=== PATIENT | male | born 1975 | race Two or more races ===

== ENCOUNTER 2018-05-06 23:01 | Emergency (ER) | payer SELFPAY ==
--- NOTE | 2018-05-06 23:06 | ER Document Report ---
ED Medical Screen (RME) - General Stated Complaint: BLOOD IN STOOL Time Seen by Provider: 05/06/18 23:03 Mode of Arrival: Ambulatory Information source: Patient Notes: PT NOTED BLOOD IN STOOL TWICE TODAY. NOTED IN STOOL TODAY I have greeted and performed a rapid initial assessment of this patient. A comprehensive ED assessment and evaluation of the patient, analysis of test results and completion of the medical decision making process will be conducted by additional ED providers. Course - Laboratory Result Diagrams: 05/06/18 23:35 05/06/18 23:35 Laboratory results interpreted by me: 05/06/18 23:35 Glucose 170 H
[2018-05-06 23:56] LABS: ABSOLUTE BASOPHILS # (AUTO) 0.1 10^3/uL (0.0-0.2); ABSOLUTE EOSINOPHILS # (AUTO) 0.1 10^3/uL (0.0-0.6); ABSOLUTE LYMPHOCYTES (AUTO) 2.3 10^3/uL (0.5-4.7); ABSOLUTE MONOCYTES (AUTO) 0.6 10^3/uL (0.1-1.4); ABSOLUTE NEUT (AUTO) 6.4 10^3/uL (1.7-8.2); BASOPHILS % (AUTO) 0.5 % (0-2); EOSINOPHILS % (AUTO) 1.5 % (0-6); HEMATOCRIT 45.2 % (37.9-51.0); HEMOGLOBIN 15.8 g/dL (13.5-17.0); MEAN CORPUSCULAR HEMOGLOBIN 29.6 pg (27.0-33.4); MEAN CORPUSCULAR HGB CONC 34.9 g/dL (32.0-36.0); MEAN CORPUSCULAR VOLUME 85 fl (80-97); MONOCYTES % (AUTO) 6.5 % (3-13); PLATELET COUNT 268 10^3/uL (150-450); RED BLOOD COUNT 5.32 10^6/uL (4.35-5.55); RED CELL DISTRIBUTION WIDTH 13.6 % (11.5-14.0); SEGMENTED NEUTROPHILS % (AUTO) 67.5 % (42-78); TOTAL CELLS COUNTED % (AUTO) 100 %; WHITE BLOOD COUNT 9.5 10^3/uL (4.0-10.5)
[2018-05-07 00:15] LABS: ALANINE AMINOTRANSFERASE 38 U/L (21-72); ALBUMIN 4.6 g/dL (3.5-5.0); ALKALINE PHOSPHATASE 82 U/L (38-126); ANION GAP 14 (5-19); ASPARTATE AMINO TRANSFERASE 27 U/L (17-59); BILIRUBIN,DIRECT 0.3 mg/dL (0.0-0.4); BILIRUBIN,TOTAL 0.5 mg/dL (0.2-1.3); BLOOD UREA NITROGEN 15 mg/dL (7-20); CALCIUM 10.2 mg/dL (8.4-10.2); CARBON DIOXIDE 24 mmol/L (22-30); CHLORIDE 100 mmol/L (98-107); GLUCOSE 170 mg/dL (75-110); POTASSIUM 3.8 mmol/L (3.6-5.0); SODIUM 138.4 mmol/L (137-145); TOTAL PROTEIN 7.6 g/dL (6.3-8.2)
[2018-05-07 02:42] VITALS: BP 144/95
--- NOTE | 2018-05-07 03:46 | ER Document Report ---
ED General - General Chief Complaint: Bloody Stools Stated Complaint: BLOOD IN STOOL Time Seen by Provider: 05/06/18 23:03 Primary Care Provider: BERTO HANNA MD [ACTIVE STAFF] - Follow up in 1 week Mode of Arrival: Ambulatory Notes: Patient is a 43-year-old male who presents to the emergency department with a chief complaint of blood in stool. He states that he noticed blood in his stool this morning. He states that he has been lifting heavy objects and straining to use the restroom. He states that there was one large clot in the toilet earlier today. He has a history of diabetes, but is currently on not on any medication due to not having a primary care provider and just recently moving to the area within normal year. He denies any other past medical history. Denies any jess sea vomiting, or diarrhea. He did have some pain earlier, but has gone away. TRAVEL OUTSIDE OF THE [place] IN LAST 30 DAYS: No Past Medical History - General Information source: Patient - Social History Smoking Status: Current Every Day Smoker Chew tobacco use (# tins/day): No Frequency of alcohol use: Occasional Drug Abuse: None Family History: Reviewed & Not Pertinent Patient has suicidal ideation: No Patient has homicidal ideation: No Renal/ Medical History: Reports: Hx Peritoneal Dialysis Review of Systems - Review of Systems Notes: REVIEW OF SYSTEMS: CONSTITUTIONAL : Denies recent illness. Denies recent unintentional weight loss. Denies fever, chills, or sweats. EENT: Denies eye, ear, throat, or mouth pain, discharge, or symptoms. Denies nasal or sinus congestion. CARDIOVASCULAR: Denies chest pain. RESPIRATORY: Denies shortness of breath, cough, congestion, difficulty breathing, or wheezing. GASTROINTESTINAL: See HPI GENITOURINARY: Denies difficulty urinating, burning, blood in urine, urgency or frequency. MUSCULOSKELETAL: Denies neck and back pain. Denies joint pain or swelling. SKIN: Denies rash, itchiness, or lesions HEMATOLOGIC : Denies easy bruising or bleeding. LYMPHATIC: Denies swollen, painful, enlarged glands. NEUROLOGICAL: Denies no numbness or tingling denies weakness. Denies headache. Denies altered mental status. Denies alteration in speech. PSYCHIATRIC: Denies stress, anxiety, alteration in sleep patterns, or depression. All other systems reviewed and negative. Physical Exam - Vital signs Vitals: Temp Pulse Resp BP Pulse Ox 98.9 F 117 H 18 144/95 H 97 05/06/18 23:06 05/06/18 23:06 05/06/18 23:06 05/06/18 23:06 05/06/18 23:06 - Notes Notes: PHYSICAL EXAMINATION: GENERAL: Appears well, healthy, well-nourished, no acute distress. HEAD: Normocephalic, atraumatic. EYES: PERRL, conjunctiva normal, all extraocular movements intact, sclera nonicteric ENT: Moist mucous membranes. NECK: Supple, no noticeable swelling, redness, rash. Normal range of motion. LUNGS: Equal breath sounds bilaterally and clear to auscultation. No wheezes rales or rhonchi. CARDIOVASCULAR: S1-S2, regular rate, regular rhythm. Radial pulses 2+, normal. ABDOMEN: Normoactive bowel sounds. Soft, nontender, no guarding, no rebound te nderness, and no masses palpated. EXTREMITIES: Normal strength and range of motion, no pitting or edema. No cyanosis. NEUROLOGICAL: Moves all extremities upon command. Strength 5/5 in all extremi ties. PSYCH: Normal mood, normal affect. SKIN: Warm, dry. No rash, lesions, ulcerations noted. Normal skin turgor. RECTAL: No sri blood noted on exam. Course - Re-evaluation Re-evalutation: 05/07/18 03:47 Patient's rectal exam was unremarkable. I did not note any sri blood on my exam. A stool for occult blood was done at bedside, but it did not result. I suspect based off patient's exam he has hemorrhoids. He will follow-up with GI and his primary care provider in regards to this issue. He is in agreement with this plan. Have instructed him to change his diet and not to strain too much on the toilet. Verbal discharge instructions were given to the patient. They verbalized understanding. They are stable for discharge. - Vital Signs Vital signs: Temp Pulse Resp BP Pulse Ox 98.9 F 117 H 18 144/95 H 97 05/06/18 23:06 05/06/18 23:06 05/06/18 23:06 05/06/18 23:06 05/06/18 23:06 - Laboratory Result Diagrams: 05/06/18 23:35 05/06/18 23:35 Laboratory results interpreted by me: 05/06/18 23:35 Glucose 170 H Discharge - Discharge Clinical Impression: Blood in stool Condition: Stable Disposition: HOME, SELF-CARE Additional Instructions: You were seen today in the emergency department for blood in your stool. Based off your physical exam, you most likely have hemorrhoids. Please add more fiber to your diet. You have been prescribed MiraLAX, medication that has fiber in it and will help you have normal bowel movements. Please do not sit on the toilet for a long time. Please do not strain while using the restroom. You can use a support belt to help you when you are lifting heavy objects. Please follow-up with a primary care doctor or [facility]. You have also been referred to the [facility] doctor. You have any symptoms that are worrisome to you, pass out, or continually have blood in her stool, please return to the emergency department. Hemorrhoids You have hemorrhoids. These are formed by enlargement of veins around the anus. The cause is increased pressure in the veins, from or straining at bowel movements. Hemorrhoids often cause itching and bleeding with bowel movements. When a hemorrhoid becomes clotted, severe pain and swelling result. Soothing creams and suppositories are often prescribed. Warm sitz-baths may also decrease pain, swelling, and itching. Eat a high-fiber diet. Stool softeners such as Metamucil will help. Keep the area very clean. Medicated cleansing pads (such as Tucks) are useful after bowel movements. A hose-mounted shower unit (like a shower massager at low water pressure) can be used to clean around tender hemorrhoid tags. You should call the doctor or return if you develop fever, increasing pain, or an enlarging mass around the anus, or if you simply fail to improve with treatment. Prescriptions: Polyethylene Glycol 3350 [Miralax] 1 cap PO DAILY #527 powder Referrals: BERTO HANNA MD [ACTIVE STAFF] - Follow up in 1 week
== END 2018-05-07 04:11 | disposition home or self-care (01) ==
LOC: ER 23:01
DX: K92.1 Melena (principal); F17.200 Nicotine dependence, unspecified, uncomplicated
CPT/HCPCS: 36415; 80053; 85025; 99283